=== PATIENT | male | born 1975 | race Caucasian/White ===

== ENCOUNTER 2022-11-23 20:04 | Emergency (ER) | payer MEDICARE, OTHER ==
[~2022-11-23] VITALS: Ht 165.1 cm; Wt 130.0 kg
[~2022-11-23 20:04] MED LIST: KETO2CRE4
[2022-11-23 20:58] VITALS: BP 137/76
[2022-11-23 21:11] LABS: Urine Bacteria NONE SEEN /hpf (None Seen); Urine Blood Negative /uL (Negative); Urine Specific Gravity 1.002 (1.001-1.035); Urine WBC <1 /hpf (0 - 3)
== END 2022-11-23 23:15 | disposition home or self-care (01) ==
LOC: ER 20:04
DX: R33.9 Retention of urine, unspecified (principal)
CPT/HCPCS: 81001

== ENCOUNTER → 2024-05-28 | Outpatient (CLI) | payer OTHER ==
[~2024-05-28] MED LIST changes: +CEPH250C PO; +DOCU-94 PO; +LISI-285 PO; +MET500T PO; +NAP500T PO; +POTA-36 PO
[2024-05-28 12:44] LABS: Urine Bacteria FEW /hpf (None Seen); Urine Blood Negative /uL (Negative); Urine Clarity Turbid (Clear); Urine Color Yellow (Yellow); Urine Mucus FEW (None Seen); Urine Protein, UAD TRACE (Negative); Urine Specific Gravity 1.031 (1.001-1.035); Urine Urobilinogen Normal (Negative); Urine WBC 3 /hpf (0 - 3); Urine pH 5.5 (5.0-9.0)
[2024-05-28 12:48] LABS: Basophils # (auto) 0 10 ^3/uL (0-0.2); Basophils % (auto) 0.4 % (0.0-2.0); Eosinophils # (auto) 0.1 10 ^3/uL (0-0.8); Hematocrit 43.4 % (41.0-53.0); Hemoglobin 14.8 g/dL (13.5-17.5); Lymphocytes # (auto) 1.4 10 ^3/uL (0.4-5.4); Lymphocytes % (auto) 24.2 % (10.0-50.0); Mean Corpuscular Hemoglobin 31.8 pg (28.0-32.0); Mean Corpuscular Hgb Conc. 34.2 g/dL (32.0-36.0); Mean Corpuscular Volume 92.8 fL (80.0-100.0); Monocytes # (auto) 0.6 10 ^3/uL (0-1.3); Monocytes % (auto) 10.4 % (0.0-12.0); Neutrophils # (auto) 3.8 10 ^3/uL (1.6-8.6); Nucleated Red Blood Cells % 0.2 %; Red Blood Cells 4.67 10^6/uL (4.5-5.90); White Blood Cell 5.9 10^3/uL (4.4-10.8)
[2024-05-28 14:02] LABS: Alanine Aminotransferase 17 U/L (7-40); Alkaline Phosphatase 95 U/L (46-116); Calcium 9.9 mg/dL (8.7-10.4); Carbon Dioxide 29 mmol/L (20-30); Chloride 105 mmol/L (98-107); Glucose 81 mg/dL (74-106); Potassium 3.7 mmol/L (3.5-5.1); Sodium 140 mmol/L (136-145)
[2024-05-28 14:03] LABS: Albumin 4.6 g/dL (3.2-4.8); Anion Gap 6 (5-15); Aspartate Aminotransferase 11 U/L (13-40); BUN/Creatinine Ratio 15.9 (10.0-20.0); Bilirubin, Total 1.5 mg/dL (0.2-1.0); Blood Urea Nitrogen 14 mg/dL (9-23); Total Protein 7.9 g/dL (5.7-8.2)
[2024-05-28 14:14] LABS: Cholesterol 191 mg/dL (< 200)
[2024-05-28 14:15] LABS: HDL Cholesterol 56 mg/dL (40-59); LDL Cholesterol 129 mg/dL (< 100); Triglycerides 74 mg/dL (< 150)
== END | disposition home or self-care (01) ==
LOC: LAB 12:18
PROVIDERS: ATTEND Nurse Practitioner
DX: I10 Essential (primary) hypertension (principal); E78.5 Hyperlipidemia, unspecified; R73.9 Hyperglycemia, unspecified
CPT/HCPCS: 36415; 80053; 80061; 81001; 83036; 84443; 85025

== ENCOUNTER 2024-06-11 16:07 | Emergency (ER) | payer OTHER ==
[~2024-06-11] VITALS: Ht 165.1 cm; Wt 80.0 kg
[2024-06-11 17:22] VITALS: BP 130/63; PULSE 97; RESP 18; O2SAT 98
[2024-06-11] MEDS ORDERED: LORA-1130 PO (17:23)
[2024-06-11] MEDS ORDERED: FLUT1SPR5 (17:23)
== END 2024-06-12 00:07 | disposition home or self-care (01) ==
LOC: ER 16:07
DX: J31.0 Chronic rhinitis (principal); I10 Essential (primary) hypertension